=== PATIENT | female | born 1935 | race African-American/Black ===

== ENCOUNTER 2018-01-10 10:55 | Outpatient (CLI) | payer MEDICARE ==
[~2018-01-10] VITALS: Ht 162.6 cm; Wt 81.8 kg
--- NOTE | ~2018-01-10 | HEMODYNAMI ---
PATIENT:GAEL LOWERY MEDICAL RECORD: [id number] : 39 LOCATION:[facility] ADMISSION DATE: 01/10/18 Generatedon:01/10/201814:20 Patient name: GAEL LOWERY Patient #: [id number] : 1935 Date of study: 01/10/2018 Page: Of Hemodynamic Procedure Report Patient Data Patient Demographics Procedure consent was obtained First Name: GAEL Gender: Female Last Name: BEVERLEY : 1935 Patient #: [id number] Age: 82 year(s) Race: Black SSN: [id number] Additional ID: [id number] Contact details [address]: [address] [place] [address] State: [place] City: [place] Zip code: [address] Admission Admission Data Admission Date: 01/10/2018 Admission Time: 10:55 Procedure Procedure Types Cath Procedure Diagnostic Procedure LHC LHC w/Coronaries Aortic Root Angiography Sedation Charges Moderate Sedation up to 15 minutes Procedure Description Procedure Date Procedure Date: 01/10/2018 Procedure Start Time: 13:56 Procedure End Time: 14:19 Procedure Staff Name Function Esvin Emery MD Performing Physician Maribeth Schmitz RT Scrub Kathleen Greer RT Monitor Song Acosta RN Nurse Procedure Data Cath Procedure Fluoroscopy Diagnostic fluoroscopy Total fluoroscopy Time: 9 time: 9 min min Diagnostic fluoroscopy Total fluoroscopy dose: dose: 1153 mGy 1153 mGy Contrast Material Contrast Material Type Amount (ml) Isovue 300 150 Entry Location Entry Primary Successful Side Size Upsize Upsize Entry Closure Gil ccessful Closure Location (Fr) 1 (Fr) 2 (Fr) Remarks Device Remarks Radial Right 6 Fr Mechanical artery Short Compression Estimated blood loss: 10 ml Diagnostic catheters Device Type Used For End Catheter Placement DIAGNOSTIC [place] 110cm 5 Procedure Fr catheter ([id number]) DIAGNOSTIC AR MOD 5Fr Procedure Catheter ([id number]) DIAGNOSTIC AR 2 MOD 5 Fr Procedure catheter ([id number]) DIAGNOSTIC Pigtail 5Fr Procedure catheter ([id number]) Procedure Complications No complications Procedure Medications Medication Administration Route Dosage Oxygen etCO2 Nasal cannula 2 l/min Heparin Flush Bag added to field 2 bags (1000units/500ml NS) 0.9% NaCl I.V. 100 ml/hr Radial Cocktail added to field 1 syringe (Verapomil 2mg/Nitro 400mcg/Heparin 1500units) Fentanyl I.V. 50 mcg Versed I.V. 1 mg Fentanyl I.V. 50 mcg Versed I.V. 1 mg Radial Cocktail I.A. 1 syringe (Verapomil 2mg/Nitro 400mcg/Heparin 1500units) Zofran I.V. 4 mg Hemodynamics Rest Heart Rate: 16 (bpm) Pressure Samples Time Site Value (mmHg) Purpose Heart Use Rate(bpm) 14:01 LV 143/-6,8 Snapshot 99 14:02 AO 105/64(82) Pullback 73 14:02 LV 111/6,3 Pullback 73 14:13 AO 140/35(91) Snapshot 90 Gradients Valve Time Site 1 Site 2 Mean SEP/DFP Peak To Heart Use (mmHg) (sec/min) Peak Rate (mmHg) (bpm) Aortic 14:02 LV AO 6 73 111/6,3 105/64(82) Calculations Valve P-P Mean Valve Index Valve Source Name Gradient Area Flow (cm2) Aortic 6 6 Snapshots Pre Cath Intra NCS Post Cath Vital Signs Time Heart Resp SPO2 etCO2 NIBP (mmHg) Rhythm Pain Sedation Rate (ipm) (%) (mmHg) Status Level (bpm) 13:45:54 71 17 100 0 177/86(141) NSR 0 (11) 10(A) , No pain 13:50:16 74 16 100 0 174/85(129) NSR 0 (11) 10(A) , No pain 13:54:34 72 19 100 0 155/87(127) NSR 0 (11) 9(A) , No pain 13:58:44 76 17 100 0 103/63(77) NSR 0 (11) 9(A) , No pain 14:02:48 77 16 93 0 113/70(105) NSR 0 (11) 9(A) , No pain 14:06:56 79 17 95 0 124/71(106) NSR 0 (11) 9(A) , No pain 14:11:07 83 17 98 0 130/70(105) NSR 0 (11) 9(A) , No pain 14:15:20 88 15 98 0 133/74(101) NSR 0 (11) 9(A) , No pain 14:17:45 81 13 99 0 130/73(104) NSR 0 (11) 9(A) , No pain Medications Time Medication Route Dose Verified Delivered Reason Notes Effectiveness by by 13:45:43 Oxygen etCO2 2 l/min Esvin Zuleta Per Nasal [facility] Alcides Acosta RN physician cannula 13:45:54 Heparin Flush added 2 bags Esvin Zuleta used for Bag to [facility] Alcides Acosta RN procedure (1000units/500ml field SOLIS NS) 13:46:08 0.9% NaCl I.V. 100 Esvin Zuleta Per ml/hr [facility] Alcides Acosta RN physician 13:46:18 Radial Cocktail added 1 Esvin Zuleta used for (Verapomil to syringe [facility] Alcides Acosta RN procedure 2mg/Nitro field SOLIS 400mcg/Heparin 1500units) 13:50:14 Zofran I.V. 4 mg Esvin Zuleta for nausea [facility] Alcides Acosta RN, MD 13:52:10 Fentanyl I.V. 50 mcg Esvin Zuleta for sedation [facility] Alcides Acosta RN, MD 13:52:16 Versed I.V. 1 mg Esvin Zuleta for sedation [facility] Alcides Acosta RN, MD 13:57:40 Radial Cocktail I.A. 1 Esvin Mcallister for (Verapomil syringe [place] [facility] vasodilation 2mg/Emelyn SOLIS MD 400mcg/Heparin 1500units) 14:02:41 Fentanyl I.V. 50 mcg Esvin Zuleta for sedation [facility] Alcides Acosta RN, MD 14:02:46 Versed I.V. 1 mg Esvin Zuleta for sedation [facility] Alcides Acosta RN, MD Procedure Log Time Note 13:20:22 Maribeth Schmitz RT(R) sent for patient. Start room use. 13:31:35 Informed consent obtained and on chart 13:31:41 Diagnostic Cath Status : Elective 13:32:23 Time tracking: Regular hours (M-F 7:00 - 5:00) 13:32:28 Plan of Care:Hemodynamics will remain stable., Cardiac rhythm will remain stable., Comfort level will be maintained., Respiratory function will remain adequate., Patient/ family verbilizes understanding of procedure., Procedure tolerated without complication., Recovers from procedure without complications.. 13:38:59 Patient received from Pre/Post Procedure Room to CCL 2 Alert and oriented. Tansferred to table in Supine position. 13:39:00 Warm blankets applied, and lashanda hugger turned on for patient comfort. 13:39:00 Correct patient and procedure confirmed by team. 13:39:01 ECG and BP/O2 sat monitors applied to patient. 13:44:41 Baseline sample Acquired. 13:44:41 Vital chart was started 13:45:43 Oxygen 2 l/min etCO2 Nasal cannula was administered by Song Acosta RN; Per physician; 13:45:54 Heparin Flush Bag (1000units/500ml NS) 2 bags added to field was administered by Song Acosta RN; used for procedure; 13:46:08 0.9% NaCl 100 ml/hr I.V. was administered by Song Acosta RN; Per physician; 13:46:18 Radial Cocktail (Verapomil 2mg/Nitro 400mcg/Heparin 1500units) 1 syringe added to field was administered by Song Acosta RN; used for procedure; 13:46:59 Baseline sample Acquired. 13:47:00 Baseline sample Acquired. 13:47:05 Baseline sample Acquired. 13:47:07 Baseline sample Acquired. 13:47:11 Full Disclosure recording started 13:47:33 H&P Date Dictated: 01/09/2018 Within 30 days and on chart.. 13:47:37 Pre-procedure instructions explained to patient. 13:47:40 Family in waiting room. 13:47:42 Patient NPO since Midnight. 13:47:51 Is the patient allergic to Iodine/contrast media? No. 13:47:52 Was the patient premedicated? Yes 13:47:55 Is patient on blood thinner?No 13:47:57 Patient diabetic? No. 13:48:04 Previous problem with sedation/anesthesia? Yes Nausea 13:48:07 Snore? Yes 13:48:08 Sleep apnea? No 13:48:18 Patient pain scale 0/10 ?. 13:48:28 IV patent on arrival in left forearm with 0.9% NaCl at [facility]. 13:48:34 Lab results completed and on chart. 13:48:38 Right Radial & Right Groin area was prepped with chlora-prep and draped in sterile fashion 13:48:42 Alarms reviewed by R. N. 13:48:43 Sharps counted by scrub and verified by R.N. 13:48:46 Physician arrived 13:48:47 --------ALL STOP TIME OUT------ 13:48:48 Final Timeout: patient, procedure, and site verified with staff and physician. All members of the team are in agreement. 13:48:50 Right Radial & Right Groin site verified by team. 13:48:54 Physical assessment completed. ASA score P 2 - A patient with mild systemic disease as per Esvin Emery MD. 13:48:59 Sedation plan: IV Moderate Sedation Medication:Versed, Fentanyl 13:49:04 Use device set Femoral Dx 13:49:06 Bag Decanter (2002S) opened to sterile field. 13:49:07 Medline Cath Pack ([id number]) opened to sterile field. 13:49:08 ACIST Syringe (27236) opened to sterile field. 13:49:08 DIAGNOSTIC WIRE .035 260cm J wire (006230) opened to sterile field. 13:49:09 ACIST Hand Control (23182) opened to sterile field. 13:49:10 ACIST Manifold (99724) opened to sterile field. 13:49:11 DIAGNOSTIC Multipack 5Fr catheter set (OC4099) opened to sterile field. 13:49:12 Tegaderm 4 x 4 (1626W) opened to sterile field. 13:49:13 PERCUTANEOUS ENTRY 19GA needle opened to sterile field. 13:49:14 MICROPUNCTURE 4FR Keynoir (P53168) opened to sterile field. 13:49:24 SHEATH 6Fr Prelude Radial ([id number]) opened to sterile field. 13:50:14 Zofran 4 mg I.V. was administered by Song Acosta RN; for nausea; 13:52:10 Fentanyl 50 mcg I.V. was administered by Song Acosta RN; for sedation; 13:52:16 Versed 1 mg I.V. was administered by Song Acosta RN; for sedation; 13:52:18 Baseline sample Acquired. 13:56:04 Procedure started. 13:56:17 Local anesthetic to right radial artery with Lidocaine 2% by Esvin Emery MD.INITIAL ACCESS ONLY 13:56:28 A 6 Fr Short sheath was inserted into the Right Radial artery 13:57:12 Zero performed for pressure channel P1 13:57:40 Radial Cocktail (Verapomil 2mg/Nitro 400mcg/Heparin 1500units) 1 syringe I.A. was administered by Esvin Emery MD; for vasodilation; 13:57:43 A DIAGNOSTIC [place] 110cm 5 Fr catheter (949190) was advanced over the wire and used for Procedure. 13:59:06 GLIDE WIRE ANGLE 260cm (TQ6334) opened to sterile field. 14:02:21 EF : 55 % 14:02:30 LCA angiography performed. 14:02:41 Fentanyl 50 mcg I.V. was administered by Song Acosta RN; for sedation; 14:02:46 Versed 1 mg I.V. was administered by Song Acosta RN; for sedation; 14:04:50 Catheter removed. 14:09:36 A DIAGNOSTIC AR MOD 5Fr Catheter (406354Y) was advanced over the wire and used for Procedure.unable to cannulate rt cor 14:09:45 Catheter removed. 14:12:14 A DIAGNOSTIC AR 2 MOD 5 Fr catheter (966607S) was advanced over the wire and used for Procedure. 14:12:18 Catheter removed. 14:12:39 A DIAGNOSTIC Pigtail 5Fr catheter ([id number]) was advanced over the wire and used for Procedure. 14:12:49 Aortic Root visualized 14:14:45 Catheter removed. 14:14:59 TR BAND Standard ([id number]) opened to sterile field. 14:15:15 Sheath removed intact; hemostasis achieved with Mechanical Compression to the Right Radial artery. 14:15:18 Procedure ended.(Physican Out) 14:15:42 Fluoroscopy time 09.00 minutes. 14:15:48 Fluoroscopy dose: 1153 mGy 14:15:48 Flurop Dose total: 1153 14:15:53 Contrast amount:Isovue 300 150ml. 14:16:18 Sharps counted by scrub and verified by R.N. 14:16:22 TR band inflated with 13cc of air. 14:16:23 Insertion/operative site no bleeding no hematoma. 14:16:29 Post Procedure Pulses reassessed and unchanged 14:16:40 Post-procedure physical assessment completed. ASA score P 3 - A patient with severe systemic disease as per Esvin Emery MD. 14:16:45 Post procedure rhythm: unchanged. 14:17:04 Estimated blood loss: 10 ml 14:17:06 Post procedure instruction explained to patient.Patient verbalizes understanding. 14:17:25 Procedure type changed to Cath procedure, Diagnostic procedure, LHC, LHC w/Coronaries, Aortic Root Angiography, Sedation Charges, Moderate Sedation up to 15 minutes 14:18:28 Procedure and supply charges have been captured, reviewed, submitted and are correct. 14:19:05 Procedure Complication : No complications 14:19:08 Vital chart was stopped 14:19:10 See physician's report for complete and final results. 14:19:13 Report given to Pre/Post Procedure Room. 14:19:15 Patient transfered to Pre/Post Procedure Room with Stretcher. 14:19:17 Procedure ended. 14:19:17 Full Disclosure recording stopped 14:19:26 End room use (Document Last) 14:19:26 End room use (Document Last) Device Usage Item Name Manufacture Quantity Catalog Number Hospital Part Current M inimal Lot# / Charge Number Stock Stock Serial# Code Bag Decanter Microtek 1 2001S [id number] 11205 073602 5 () Medical Inc. Medline Cath Cardinal 1 [id number] 423880 71908 912946 5 Pack Health ([id number]) ACIST Syringe Acist 1 67628 237705 105032 969912 2 0 (85590) Medical [employer] Inc DIAGNOSTIC WIRE [facility] [place] 1 121644 982363 085211 666007 3 0 .035 260cm J wire (027853) ACIST Hand Acist 1 14769 743776 045482 702151 5 Control (93949) Medical Systems Inc ACIST Manifold Acist 1 56019 069092 487872 227809 5 (24272) Medical Systems Inc DIAGNOSTIC Cardinal 1 LH6301 995332 17074 491293 3 0 Multipack 5Fr Health catheter set (IQ1175) Tegaderm 4 x 4 3M 1 1626W 490957 681939 195644 5 (1626W) PERCUTANEOUS Keynoir Medical 1 N91164 656016 274754 5 ENTRY 19GA needle MICROPUNCTURE Cook Medical 1 Z80787 467338 754535 273097 5 4FR Cook (W47849) SHEATH 6Fr Merit 1 [id number] 335111 328190 367918 5 Prelude Radial Medical ([id number]) DIAGNOSTIC Terumo 1 40-4620 011587 025225 491821 5 [place] 110cm 5 Fr catheter (917852) GLIDE WIRE Terumo 1 YW5655 602978 998808 789667 5 ANGLE 260cm (BJ2246) DIAGNOSTIC AR Cardinal 1 [id number] 516168 781183 626408 1 5 MOD 5Fr Health Catheter (103406B) DIAGNOSTIC AR 2 Cardinal 1 147984Y 104260 883036 446687 2 0 MOD 5 Fr Health catheter (859992Z) DIAGNOSTIC Cardinal 1 [id number] 865787 966574 739914 5 Pigtail 5Fr Health catheter (541329I) TR BAND Terumo 1 [id number] 730236 338516 972491 4 0 Standard ([id number]) Signature Audit [place] Stage Time Signature Unsigned Intra-Procedure 01/10/2018 Kathleen Greer 2:20:02 PM RT(R) Signatures Monitor : Kathleen Greer Signature : RT Date : Time : [facility] [address] [place] [address]
--- NOTE | ~2018-01-10 | OP ---
PATIENT NAME: GAEL LOWERY MEDICAL RECORD: [id number] :39 LOCATION:D.CAT ADMISSION DATE: SURGEON: WON LEAHY MD DATE OF OPERATION: 01/10/2018 PROCEDURE: Left heart catheterization, selective coronary angiography, right radial approach. CATHETERS: [place] sheath. AR1 and 2 as well as a pigtail. The procedure was well tolerated. The patient returned to the soriano, sheath removed, and TR band was placed. FINDINGS: Left ventriculography in 30-degree VASQUEZ view: Normal wall motion, normal systolic function. AORTIC ROOT INJECTION: Aortic root injection was performed. This showed a probable flush occlusion of the right coronary artery at the aorta with no nub. CORONARY ANATOMY: LEFT MAIN: Left main is free of disease. LAD: Has a proximal stenosis about 80% distal takeoff of the LAD from the left main. CIRCUMFLEX: Again, a proximal stenosis of 80%. RIGHT CORONARY ARTERY: Totally occluded, fills via left to right collaterals. IMPRESSION: Three-vessel coronary artery disease. We will consult CT surgery for coronary artery bypass grafting. TRANSINT:[id number] Voice Confirmation ID: [id number] DOCUMENT ID: [id number] WON LEAHY MD at 0826 CC: [id number] DICTATION DATE: 01/10/18 1423 ESL TEACHER: 01/10/18 1514 DEP CLI 01/10/18 [facility] [address] [place] [address]
--- NOTE | ~2018-01-10 | HP ---
PATIENT: GAEL LOWERY MEDICAL RECORD: [id number] ACCOUNT: [id number] LOCATION:[facility] : 39 ADMISSION DATE: 01/10/18 HISTORY AND PHYSICAL EXAMINATION HISTORY OF PRESENT ILLNESS: An 82-year-old female with a history of hypertension, hyperlipidemia, referred with anginal symptomatology. She was seen in the office, complained of shortness of breath progressive, few episodes of rest symptomology. Known history of peripheral vascular disease. Being brought to slab stripper for diagnostic angiography. MEDICATIONS: Include Aleve 220 one q.12, amlodipine 5 every day, simvastatin 20 daily, aspirin 81 mg daily, lisinopril 20 every day. SOCIAL HISTORY: Nonsmoker, nondrinker. She is able to take care of her ADLs. PHYSICAL EXAMINATION: GENERAL: Pleasant female, appears younger than stated age. HEENT: Normocephalic, atraumatic. NECK: No bruits. HEART: Regular. LUNGS: Child clear. ABDOMEN: Soft, nontender. EXTREMITIES: Pulses 2+ with no edema. IMPRESSION: Progressive angina. PLAN: Plan for angiography, intervention based on above. TRANSINT:[id number] Voice Confirmation ID: [id number] DOCUMENT ID: [id number] WON LEAHY MD at 0826 CC: [id number] DICTATION DATE: 01/10/18 1350 PLAYROOM ATTENDANT: 01/10/18 1414 DEP CLI 01/10/18 [place] [id number] [place] [id number]
[2018-01-10 11:26] VITALS: BP 201/96; Ht 162.6 cm; Wt 81.8 kg
[2018-01-10] MEDS ORDERED: ZOCOR20 MG PO (11:35)
[2018-01-10] MEDS ORDERED: OMEPRAZOLE40 MG PO (11:35)
[2018-01-10] MEDS ORDERED: PRINIVIL20 MG PO (11:35)
[2018-01-10] MEDS ORDERED: NORVASC5 MG PO (11:35)
[2018-01-10] MEDS ORDERED: BAYER CHEWABLE81 MG PO (11:36)
[2018-01-10 11:47] LABS: BASOPHILS 0.2 % (0-2); EOSINOPHILS 2.6 % (0-7); HEMATOCRIT 37.8 % (36.0-48.0); HEMOGLOBIN 12.8 g/dL (12-16); IMMATURE GRANULOCYTES 0.2 % (0-5); LYMPHOCYTES 39.3 % (15-50); MCH 27.9 pg (26.0-34.0); MCHC 33.9 g/dL (31.0-37.0); MCV 82.4 fL (80.0-100.0); MEAN PLATELET VOLUME 10.7 fL (7.4-10.4); MONOCYTES 6.1 % (2-11); NEUTROPHILS 51.6 % (40-80); PLATELET COUNT 217 10x3/uL (130-400); RBC 4.59 10x6/uL (4.00-5.40); RDW 14.2 % (11.5-14.5); WBC 4.9 10x3/uL (4.8-10.8)
[2018-01-10 11:58] LABS: ANION GAP 10.6 mmol/L (8-16); CALCIUM 9.5 mg/dL (8.5-10.1); CARBON DIOXIDE 30.3 mmol/L (21.0-32.0); CREATININE - SERUM 0.8 mg/dL (0.6-1.3); POTASSIUM - SERUM 3.9 mmol/L (3.5-5.1)
[2018-02-08] MEDS ORDERED: ALEVE220 MG PO (09:55)
== END 2018-01-10 18:30 | disposition home or self-care (01) ==
LOC: D.CATH 10:55
PROVIDERS: Internal Medicine Interventional Cardiology
DX: I25.10 Atherosclerotic heart disease of native coronary artery without angina pectoris (principal); I10 Essential (primary) hypertension; E78.5 Hyperlipidemia, unspecified; I73.9 Peripheral vascular disease, unspecified; Z79.1 Long term (current) use of non-steroidal anti-inflammatories (NSAID); Z79.82 Long term (current) use of aspirin; Z79.899 Other long term (current) drug therapy; Z01.812 Encounter for preprocedural laboratory examination

== ENCOUNTER 2018-02-08 10:00 | Inpatient (IN) | payer MEDICARE ==
[~2018-02-08] VITALS: Ht 162.6 cm; Wt 86.8 kg
--- NOTE | ~2018-02-08 | OP ---
PATIENT NAME: GAEL LOWERY MEDICAL RECORD: [id number] :39 LOCATION:D.CVI D.CV02 ADMISSION DATE:02/11/18 SURGEON: OCTAVIO KO MD DATE OF OPERATION: 02/11/2018 SURGEON: Octavio Ko MD CONTINUING EDUCATION INSTRUCTOR: Amina Robertson MD, and SAADIA Duenas OPERATION PERFORMED: Coronary artery bypass graft times 3 (left internal mammary to LAD, reverse saphenous vein graft from aorta to obtuse marginal and aorta to posterior descending artery). PREOPERATIVE DIAGNOSIS: Coronary artery disease with left main equivalent and occluded right coronary artery. POSTOPERATIVE DIAGNOSIS: Coronary artery disease with left main equivalent and occluded right coronary artery. ANESTHESIA: General endotracheal anesthesia. ESTIMATED BLOOD LOSS: Total cardiopulmonary bypass with Cell Saver retransfusion, 2 packed red blood cells. COMPLICATIONS: None. SPECIMENS: None. CONDITION: Stable. DISPOSITION: CV ICU. OPERATIVE FINDINGS: 1. Transesophageal echocardiography with normal appearing heart, no valvular incompetence. 2. Good quality greater saphenous vein slightly smaller portion at the knee was not used. 3. Good quality internal mammary artery. The LAD as known from the previous arteriogram had diffuse disease including disease at the distal bifurcation site, but after opening the vessel 1.5 mm probe passed distally to the apex and there was good Doppler flow after anastomosis. 4. Obtuse marginal 2.0 mm vessel with severe disease. 5. Posterior ascending artery 2.0 mm vessel. OPERATIVE INDICATION: Unstable angina symptoms 80% left main equivalent occluded right coronary artery. OPERATIVE SUMMARY IN DETAIL: The patient was brought to the operating suite. General anesthesia was obtained. The patient was prepped and draped. The vein was harvested with bridging incisions. Side branches were clipped. Vessels removed and cannulated. Side branches were tied. The leg was then irrigated and closed in 2 layers. Median sternotomy incision was made. Subcutaneous tissue divided with electrocautery. The sternum was divided. Left hemisternum was elevated. Left OPERATIVE REPORT [id number] GAEL LOWERY internal mammary artery vein was taken as a pedicle graft. Sternal retractor was placed. Pericardium was opened. Heparin was given. The patient was cannulated. Internal mammary was clipped distally and made ready for anastomosis. The patient was placed on cardiopulmonary bypass. Site for distal anastomosis were selected. The patient was cooled. Crossclamp was placed. Cardioplegia needle was inserted in the anterior ascending aorta and the cardioplegia was given antegrade including down the completed vein grafts at 15-minute intervals. The distal anastomosis was performed in standard technique and proximal anastomosis in single cross-clamp technique. The aortic root de-aired, flow restored. After deairing the root and deairing the vein grafts, proximal and distal anastomotic sites inspected for bleeding. The patient resumed rhythm after single defibrillation, fully rewarmed with cardiopulmonary bypass and was stable. The patient was decannulated. The cannula sites were oversewn. Protamine was given. Thorough irrigation was undertaken. Graft lay appropriately. The drains were placed in the mediastinum and left pleural cavity. Ventricular pacing wires were placed. Pericardial fat was loosely approximated the midline. The left chest was evacuated and irrigated. The internal mammary harvest site was made hemostatic. Sternum was closed with wires including a Robicsek weave on the right side. The patient was stable. Chest closed. Fascia was closed. Subcutaneous tissue was closed. Skin was closed. Dermabond was placed. The needle and sponge counts were reported as correct and the patient was taken to the ICU in stable condition. TRANSINT:[id number] Voice Confirmation ID: [id number] DOCUMENT ID: [id number] OCTAVIO KO MD at 1505 CC: [id number] DICTATION DATE: 02/11/181952 PRODUCTION LINE WORKER: 02/12/18 0001 DIS IN 02/17/18 [place] [id number] [place] [address]
--- NOTE | ~2018-02-08 | HP ---
PATIENT: GAEL LOWERY MEDICAL RECORD: [id number] ACCOUNT: [id number] LOCATION:[facility] : 39 ADMISSION DATE: 02/11/18 HISTORY AND PHYSICAL EXAMINATION GAEL Smith (82yo, F) ID# [id number]. Date/Time01/29/2018 02:33POEDB48 1937Servic Dept.[facility]PP[facility] ClinicProviderJANICE KO MDInsuranceMed Primary: [place] Insurance # : [id number] Referring Provider Name : WON QUEZADA Employer Name : UNKNOWN Prescription: ORX - Member is eligible. Chief Complaint Coronary artery disease Patient's Care Team Referring Provider (): WON QUEZADA: [address] [place] [address], , Employee Benefits Administrator: WON LEAHY MD: [address] [place] [id number], , Patient's Pharmacies [facility] [id number] ([facility]): [id number] [facility] [id number], , Vitals BP:160/90 sitting L arm 01/29/2018 02:40 pm 162/90 sitting R arm 01/29/2018 02:41 pmBP Cuff Size:adult 01/29/2018 02:40 pm adult 01/29/2018 02:41 pmHR:78,reg 01/29/2018 02:42 pmHt:5 ft 4 in 01/29/2018 02:39 pmWt:176 lbs 01/29/2018 02:39 pmNotes:had pain and numbness to RLE and was sent to [facility] did stress test then cath, now she's here. Legs are on the back burner. bilat LE doppler bp L 198, R 204 able to auscultate dp and pt pulses bilat w doppler 01/29/2018 02:58 pmBMI:30.2 01/29/2018 02:39 pmAllergies Reviewed Allergies PRAVASTATIN: Myalgias (muscle pain)Medications Reviewed Medications Aleve 220 mg capsule Take 1 mg every 12 hours by oral route.01/21/18 enteredErika WatkinsamLODIPine 5 mg cizyll14/30/18 filledPRESCRIPTION SOLUTIONSAspir-81 81 DAILY01/21/18 enteredErika Watkinslisinopril 20 mg tablet TK 1 T PO D011/29/17 filledsurescriptsomeprazole 40 mg capsule,delayed oczsazt78/18/18 filledPRESCRIPTION SOLUTIONSsimvastatin 20 mg putsxq66/01/18 filledsurescriptsProblems Reviewed Problems Coronary arteriosclerosis - Onset: 01/29/2018 Swelling of bilateral lower limbs Hypertensive disorder Hyperlipidemia Dyspnea on exertion Family History Reviewed Family History Father- AccidentMother- Malignant neoplastic diseaseBrother- Myocardial infarction - Malignant lymphoma (clinical) - Intracranial tumorSocial History Reviewed Social History Cardiology HISTORY AND PHYSICAL [id number] GAEL LOWERY Family history of heart disease?: Y Smoking Status: Never smoker High Cholesterol: Y High blood pressure: Y Overweight: Y Obese: Y Diabetes: N Alcohol intake: None Diet: Regular Occupation: retired Surgical History Reviewed Surgical History LUMPECTOMY R BREAST INTERNIST MEDICAL DOCTOR MD History (not configured) Past Medical History Reviewed Past Medical History Angina: Y Chest Pain: Y Circulation Problems: Y Coronary Artery Disease: Y Dizzy Spells: Y Heart Disease: Y Heartburn: Y Hyperlipidemia: Y Hypertension: Y Pain in legs when walking: Y Peripheral Vascular Disease (PVD): Y Shortness of Breath: Y Swelling of Ankles, Feet or Hands: Y Documents for Discussion N/A Screening None recorded. HPI Coronary Artery Disease F/U Reported by patient. Severity: no chest discomfort with daily activities; has not needed to use Nitroglycerin Associated Symptoms: no chest pain; no neck pain; no left arm pain; no sweating; no nausea; no stress; dyspnea with exertion 82-year-old female with exertional dyspnea, denies chest pain, palpitations, syncope or near syncope, or history of heart disease Cardiac catheterization revealed 80% proximal LAD and circumflex with an occluded right coronary artery, well collateralized. She had some rest pain in the right leg but no tissue loss and specifically denies claudication symptoms ROS Additionally reports: as reviewed in the chart with the patient and her daughter ROS as noted in the HPI Physical Exam Patient is an 82-year-old female. Constitutional: General Appearance well nourished and developed and healthy-appearing. Level of Distress NAD. Ambulation ambulating normally. HISTORY AND PHYSICAL [id number] BROWN,GAEL Ears, Nose, Throat: Ears grossly normal hearing. Nose no external nose lesion. Lips, Teeth, and Gums normal dentition. Oropharynx: moist mucous membranes. Cardiovascular: Apical Impulse not displaced. Heart Auscultation RRR and no murmurs. Arterial Pulses 2+ bilateral. Edema no edema or varicosities. Lungs: Repiratory Effort no dyspnea. Percussion no dullness or flatness. Auscultation no wheezing, rhonchi, or rales / crackles and breathing sounds normal and good air movement. Abdomen: Inspection and Palpation soft, non-distended, and no masses. Liver no hepatomegaly. Spleen no splenomegaly. Musculoskeletal System: Gait And Stance normal gait and stance. Digits and Na ils normal nails and no cyanosis. Joints, Bones, and Muscles normal strength and movement of all extremities. Neurologic: Cranial Nerves grossly intact. Sensation grossly intact. Lymph Nodes: Lymph Nodes no cervical LAD or supraclavicular LAD. Eyes: Lids and Conjunctivae non-injected. EOM EOMI. Sclera non-icteric. Neck: Neck supple, trachea midline, and no masses. Thyroid no enlargement. Skin: Inspection and Palpation no rash, lesions, ulcers, or jaundice. Assessment / Plan 1. Coronary arteriosclerosis I25.10: Atherosclerotic heart disease of [place] coronary artery without angina pectoris Patient Instructions discussed warning signs Discussion Notes we discussed the rationaleof coronary artery bypass graft, the alternatives, benefits, recovery, and risks including but not limited to bleeding, transfusion, infection, reoperation, arrhythmia, heart attack, stroke, organ failure, and . [place] from February 04, plan PAT February 08 and bypass February 11 JANICE KO MD at 1006 CC: [id number] DICTATION DATE: 01/29/18 1400 OFFSET DUPLICATING MACHINE OPERATOR: DM 02/08/18 1123 [address] [place] [id number] [place] [address]
--- NOTE | ~2018-02-08 | TEE ---
PATIENT:GAEL LOWERY MEDICAL RECORD: [id number] LOCATION:[place] [address] AGE OF PATIENT: 82 ADMISSION DATE: 02/11/18 SEX: F REFERRING PHYSICIAN: INTERPRETING PHYSICIAN: KARINA DUMONT MD TRANSESOPHAGEAL ECHOCARDIOGRAM Date: 02/11/18 LILA CHARGE Y INDICATIONS: CABG PREMEDICATIONS: PATIENT'S RESPONSE PROCEDURE DOPPLER MEASUREMENTS: LVIT LA PA RA LVOT RVOT Asc. Ao AV Gradient Peak AV Mean AV Area MV Gradient Peak MV Mean MV Area INTERPRETATION: LVd: 3.7 cm LVs: 1.6 cm Doppler: 2-D: COLOR FLOW DOPPLER NORMAL SALINE STUDY: MISCELLANOUS: DIAGNOSIS: PLAN: Adoption Coordinator:3 Dr. Palmer Linen Controller: Maria Guadalupe CASE COMMENTS: DATE OF SERVICE: 02/11/2018 PROCEDURE: Transesophageal echo evaluation of valvular structures during bypass surgery. FINDINGS: 1. Left ventricular chamber size is within normal limits. Left ventricular systolic function is normal. Overall ejection fraction is estimated at 60%. 2. Left atrium, right atrium, and right ventricle chamber sizes are within TRANSESOPHAGEAL ECHOCARDIOGRAM REPORT [id number] GAEL LOWERY normal limit. 3. Valvular structures have normal structure and motion. 4. Doppler interrogation reveals no significant valvular insufficiency or stenosis. 5. No evidence of pericardial effusion or left ventricular thrombus. TRANSINT:[id number] Voice Confirmation ID: [id number] DOCUMENT ID: [id number] at 1741 CC: [id number] DICTATION DATE: 02/12/18 1218 AIRPORT TRAFFIC CONTROLLER: 02/12/18 1520 ADM [address] [place] [id number] [place] [address]
[~2018-02-08 10:00] MED LIST: ALEVE220 MG PO; BAYER CHEWABLE81 MG PO; NORVASC5 MG PO; OMEPRAZOLE40 MG PO; PRINIVIL20 MG PO; ZOCOR20 MG PO
[2018-02-08 11:55] LABS: BASOPHILS 0.2 % (0-2); EOSINOPHILS 3.3 % (0-7); HEMATOCRIT 38.2 % (36.0-48.0); HEMOGLOBIN 12.7 g/dL (12-16); IMMATURE GRANULOCYTES 0.2 % (0-5); LYMPHOCYTES 35.8 % (15-50); MCH 27.8 pg (26.0-34.0); MCHC 33.2 g/dL (31.0-37.0); MCV 83.6 fL (80.0-100.0); MEAN PLATELET VOLUME 10.8 fL (7.4-10.4); MONOCYTES 5.2 % (2-11); NEUTROPHILS 55.3 % (40-80); PLATELET COUNT 187 10x3/uL (130-400); RBC 4.57 10x6/uL (4.00-5.40); RDW 14.2 % (11.5-14.5); WBC 5.4 10x3/uL (4.8-10.8)
[2018-02-08 11:57] LABS: APPEARANCE CLEAR (CLEAR); BILIRUBIN NEGATIVE (NEGATIVE); COLOR YELLOW (YELLOW); GLUCOSE NEGATIVE (NEGATIVE); KETONE NEGATIVE (NEGATIVE); NITRITE NEGATIVE (NEGATIVE); PROTEIN NEGATIVE (NEGATIVE); SPECIFIC GRAVITY 1.005 (1.005-1.020)
[2018-02-08 12:11] LABS: APTT 35.1 SECONDS (22.8-39.4); INR 1.04 (0.85-1.17); PROTIME 13.2 SECONDS (11.6-15.0)
[2018-02-08 12:25] LABS: ALBUMIN 3.6 g/dL (3.4-5.0); ANION GAP 11.6 mmol/L (8-16); BILIRUBIN - TOTAL 0.34 mg/dL (0.2-1.3); CALCIUM 9.6 mg/dL (8.5-10.1); CARBON DIOXIDE 29.7 mmol/L (21.0-32.0); CREATININE - SERUM 0.8 mg/dL (0.6-1.3); PHOSPHOROUS 3.9 mg/dL (2.5-4.9); POTASSIUM - SERUM 4.3 mmol/L (3.5-5.1); PROTEIN - SERUM 7.4 g/dL (6.4-8.2); T4 THYROXIN - FREE 0.99 ng/dL (0.76-1.46); THYROID STIMULATING HORMONE 1.17 uIU/mL (0.36-3.74); URIC ACID 4.4 mg/dL (2.6-7.2)
[2018-02-11] VITALS (20 sets, daily range): BP systolic 97–178; BP diastolic 48–95; BMI 30.1; BMI 31.6
[2018-02-12] VITALS (51 sets, daily range): BP systolic 101–150; BP diastolic 56–85; Ht 162.6 cm; Wt 86.8 kg
[2018-02-12 06:13] LABS: HEMATOCRIT 39.2 % (36.0-48.0); HEMOGLOBIN 13.5 g/dL (12-16); MCH 28.2 pg (26.0-34.0); MCHC 34.4 g/dL (31.0-37.0); RBC 4.78 10x6/uL (4.00-5.40); RDW 14.2 % (11.5-14.5); WBC 15.1 10x3/uL (4.8-10.8)
[2018-02-12 07:01] LABS: ALBUMIN 3.1 g/dL (3.4-5.0); ALKALINE PHOSPHATASE 52 U/L (46-116); ALT (SGPT) 15 U/L (10-68); BILIRUBIN - TOTAL 0.64 mg/dL (0.2-1.3); CALC OSMOLALITY 283 mosm/kg (275-300); CALCIUM 7.9 mg/dL (8.5-10.1); CARBON DIOXIDE 25.2 mmol/L (21.0-32.0); CHLORIDE - SERUM 106 mmol/L (98-107); CREATININE - SERUM 0.7 mg/dL (0.6-1.3); POTASSIUM - SERUM 4.3 mmol/L (3.5-5.1); PROTEIN - SERUM 5.6 g/dL (6.4-8.2); SODIUM 141 mmol/L (136-145); UREA NITROGEN 10 mg/dL (7-18); eGFR NON AFRICAN AMERICAN 85 mL/min (90-120)
[2018-02-12 07:04] LABS: GLUCOSE 177 mg/dL (74-106)
[2018-02-13] VITALS (25 sets, daily range): BP systolic 101–136; BP diastolic 51–76
[2018-02-13 06:22] LABS: HEMATOCRIT 36.6 % (36.0-48.0); HEMOGLOBIN 12.1 g/dL (12-16); MCH 27.8 pg (26.0-34.0); MCHC 33.1 g/dL (31.0-37.0); MEAN PLATELET VOLUME 11.3 fL (7.4-10.4); RBC 4.35 10x6/uL (4.00-5.40); RDW 14.6 % (11.5-14.5); WBC 16.2 10x3/uL (4.8-10.8)
[2018-02-13 06:32] LABS: ALBUMIN 2.7 g/dL (3.4-5.0); ANION GAP 8.6 mmol/L (8-16); BILIRUBIN - TOTAL 0.73 mg/dL (0.2-1.3); CALCIUM 8.3 mg/dL (8.5-10.1); CARBON DIOXIDE 29.6 mmol/L (21.0-32.0); CREATININE - SERUM 0.9 mg/dL (0.6-1.3); POTASSIUM - SERUM 4.2 mmol/L (3.5-5.1); PROTEIN - SERUM 5.8 g/dL (6.4-8.2)
[2018-02-13 06:34] LABS: MCV 84.1 fL (80.0-100.0)
[2018-02-14] VITALS (24 sets, daily range): BP systolic 105–138; BP diastolic 58–80
[2018-02-14 06:35] LABS: HEMATOCRIT 34.9 % (36.0-48.0); HEMOGLOBIN 11.5 g/dL (12-16); MCH 27.9 pg (26.0-34.0); MCV 84.7 fL (80.0-100.0); MEAN PLATELET VOLUME 11.1 fL (7.4-10.4); RBC 4.12 10x6/uL (4.00-5.40); RDW 14.5 % (11.5-14.5); WBC 13.3 10x3/uL (4.8-10.8)
[2018-02-14 06:46] LABS: ALBUMIN 2.4 g/dL (3.4-5.0); ANION GAP 5.8 mmol/L (8-16); BILIRUBIN - TOTAL 0.54 mg/dL (0.2-1.3); CALCIUM 8.7 mg/dL (8.5-10.1); CARBON DIOXIDE 30.9 mmol/L (21.0-32.0); CREATININE - SERUM 0.8 mg/dL (0.6-1.3); POTASSIUM - SERUM 4.7 mmol/L (3.5-5.1); PROTEIN - SERUM 5.7 g/dL (6.4-8.2)
[2018-02-15] VITALS (23 sets, daily range): BP systolic 90–139; BP diastolic 51–78
[2018-02-15 06:52] LABS: HEMATOCRIT 35.2 % (36.0-48.0); HEMOGLOBIN 11.7 g/dL (12-16); MCH 27.7 pg (26.0-34.0); MCHC 33.2 g/dL (31.0-37.0); MCV 83.4 fL (80.0-100.0); MEAN PLATELET VOLUME 10.7 fL (7.4-10.4); RBC 4.22 10x6/uL (4.00-5.40); RDW 14.4 % (11.5-14.5); WBC 10.1 10x3/uL (4.8-10.8)
[2018-02-15 07:10] LABS: ALBUMIN 2.4 g/dL (3.4-5.0); ANION GAP 9.1 mmol/L (8-16); BILIRUBIN - TOTAL 0.62 mg/dL (0.2-1.3); CALCIUM 9.1 mg/dL (8.5-10.1); CARBON DIOXIDE 29.6 mmol/L (21.0-32.0); POTASSIUM - SERUM 4.7 mmol/L (3.5-5.1); PROTEIN - SERUM 5.9 g/dL (6.4-8.2)
[2018-02-15 07:11] LABS: CREATININE - SERUM 1.1 mg/dL (0.6-1.3)
[2018-02-16] VITALS (23 sets, daily range): BP systolic 101–146; BP diastolic 53–83
[2018-02-16 06:26] LABS: HEMATOCRIT 34.5 % (36.0-48.0); HEMOGLOBIN 11.4 g/dL (12-16); MCH 27.9 pg (26.0-34.0); MCV 84.6 fL (80.0-100.0); MEAN PLATELET VOLUME 10.3 fL (7.4-10.4); RBC 4.08 10x6/uL (4.00-5.40); RDW 14.6 % (11.5-14.5); WBC 8.5 10x3/uL (4.8-10.8)
[2018-02-16 07:15] LABS: ALBUMIN 2.4 g/dL (3.4-5.0); ANION GAP 12.9 mmol/L (8-16); BILIRUBIN - TOTAL 0.47 mg/dL (0.2-1.3); CARBON DIOXIDE 27.5 mmol/L (21.0-32.0); CREATININE - SERUM 0.9 mg/dL (0.6-1.3); POTASSIUM - SERUM 4.4 mmol/L (3.5-5.1)
[2018-02-17] VITALS (15 sets, daily range): BP systolic 105–130; BP diastolic 53–70
[2018-02-17 10:57] LABS: HEMATOCRIT 36.3 % (36.0-48.0); HEMOGLOBIN 11.7 g/dL (12-16); MCHC 32.2 g/dL (31.0-37.0); MEAN PLATELET VOLUME 10.1 fL (7.4-10.4); PLATELET COUNT 193 10x3/uL (130-400); RBC 4.18 10x6/uL (4.00-5.40); RDW 14.8 % (11.5-14.5); WBC 8.7 10x3/uL (4.8-10.8)
[2018-02-17 11:00] LABS: MCV 86.8 fL (80.0-100.0)
[2018-02-17 11:18] LABS: EOSINOPHILS 3 % (0-7); LYMPHOCYTES 20 % (15-50); MONOCYTES 11 % (2-11); NEUTROPHILS 65 % (40-80); PLATELET ESTIMATE NORMAL
[2018-02-17 11:20] LABS: ALBUMIN 2.5 g/dL (3.4-5.0); ANION GAP 11.9 mmol/L (8-16); BILIRUBIN - TOTAL 0.48 mg/dL (0.2-1.3); CALCIUM 8.8 mg/dL (8.5-10.1); CARBON DIOXIDE 28.7 mmol/L (21.0-32.0); POTASSIUM - SERUM 4.6 mmol/L (3.5-5.1); PROTEIN - SERUM 6.3 g/dL (6.4-8.2)
[2018-02-17] MEDS ORDERED: LOPRESSOR25 MG PO (11:36)
[2018-02-17] MEDS ORDERED: CORDARONE200 MG PO (11:36)
[2018-02-17] MEDS ORDERED: ULTRAM50 MG PO (11:40)
== END 2018-02-17 14:00 | disposition home or self-care (01) | DRG 236 ==
LOC: D.SDCHOLD 11:00 → D.CVICU 02-11 08:35 → D.SDCHOLD 02-11 11:00 → D.CVICU 02-11 16:25
PROVIDERS: Internal Medicine Cardiovascular Disease; Thoracic Surgery (Cardiothoracic Vascular Surgery)
PROC: 021109W Bypass Coronary Artery, Two Arteries from Aorta with Autologous Venous Tissue, Open Approach (ICD-10-PCS; 2018-02-11)
PROC: 06BP0ZZ Excision of Right Saphenous Vein, Open Approach (ICD-10-PCS; 2018-02-11)
PROC: B24BZZ4 Ultrasonography of Heart with Aorta, Transesophageal (ICD-10-PCS; 2018-02-11)
PROC: 5A1221Z Performance of Cardiac Output, Continuous (ICD-10-PCS; 2018-02-11)
PROC: 02100Z9 Bypass Coronary Artery, One Artery from Left Internal Mammary, Open Approach (ICD-10-PCS; principal; 2018-02-11 14:15)
DX: I25.119 Atherosclerotic heart disease of native coronary artery with unspecified angina pectoris (principal); I10 Essential (primary) hypertension; E78.5 Hyperlipidemia, unspecified; R06.00 Dyspnea, unspecified; M79.89 Other specified soft tissue disorders; R00.1 Bradycardia, unspecified

== ENCOUNTER → 2018-02-25 11:10 | Outpatient (CLI) | payer MEDICARE ==
[2018-02-12 09:55] VITALS: BMI 31.9
[~2018-02-25 11:10] MED LIST changes: +CORDARONE200 MG PO; +LOPRESSOR25 MG PO; +ULTRAM50 MG PO
[2018-02-25 12:00] LABS: BASOPHILS 0.2 % (0-2); EOSINOPHILS 0.3 % (0-7); HEMATOCRIT 37.3 % (36.0-48.0); HEMOGLOBIN 12.4 g/dL (12-16); IMMATURE GRANULOCYTES 0.3 % (0-5); LYMPHOCYTES 5.6 % (15-50); MCH 27.9 pg (26.0-34.0); MCHC 33.2 g/dL (31.0-37.0); MEAN PLATELET VOLUME 9.5 fL (7.4-10.4); NEUTROPHILS 88.6 % (40-80); RBC 4.44 10x6/uL (4.00-5.40); RDW 13.9 % (11.5-14.5); WBC 17.2 10x3/uL (4.8-10.8)
[2018-02-25 12:01] LABS: PLATELET COUNT 376 10x3/uL (130-400)
[2018-02-25 12:40] LABS: ALBUMIN 2.9 g/dL (3.4-5.0); ANION GAP 13.9 mmol/L (8-16); BILIRUBIN - TOTAL 0.73 mg/dL (0.2-1.3); CALCIUM 8.8 mg/dL (8.5-10.1); CARBON DIOXIDE 25.6 mmol/L (21.0-32.0); CREATININE - SERUM 0.9 mg/dL (0.6-1.3); POTASSIUM - SERUM 4.5 mmol/L (3.5-5.1)
== END | disposition home or self-care (01) ==
LOC: D.RAD 11:10
PROVIDERS: Thoracic Surgery (Cardiothoracic Vascular Surgery)
DX: I25.10 Atherosclerotic heart disease of native coronary artery without angina pectoris (principal); R06.02 Shortness of breath; J90 Pleural effusion, not elsewhere classified

== ENCOUNTER → 2018-03-13 09:31 | Outpatient (CLI) | payer MEDICARE ==
[2018-02-12 09:55] VITALS: BMI 31.9
[2018-03-13 10:33] LABS: ALBUMIN 3.5 g/dL (3.4-5.0); ANION GAP 10.9 mmol/L (8-16); BILIRUBIN - TOTAL 0.38 mg/dL (0.2-1.3); CALCIUM 8.9 mg/dL (8.5-10.1); CARBON DIOXIDE 29.4 mmol/L (21.0-32.0); CREATININE - SERUM 0.9 mg/dL (0.6-1.3); POTASSIUM - SERUM 4.3 mmol/L (3.5-5.1)
[2018-03-13 11:44] LABS: HEMATOCRIT 37.3 % (36.0-48.0); HEMOGLOBIN 12.3 g/dL (12-16); MCH 27.8 pg (26.0-34.0); MCV 84.2 fL (80.0-100.0); MEAN PLATELET VOLUME 9.9 fL (7.4-10.4); RBC 4.43 10x6/uL (4.00-5.40); RDW 14.2 % (11.5-14.5); WBC 7.8 10x3/uL (4.8-10.8)
== END | disposition home or self-care (01) ==
LOC: D.RAD 09:31 → D.LAB 11:30
PROVIDERS: Thoracic Surgery (Cardiothoracic Vascular Surgery)
DX: J91.8 Pleural effusion in other conditions classified elsewhere (principal); D64.9 Anemia, unspecified

== ENCOUNTER → 2018-04-17 09:17 | Outpatient (CLI) | payer MEDICARE ==
[2018-02-12 09:55] VITALS: BMI 31.9
[2018-04-17 12:09] LABS: BASOPHILS 0.2 % (0-2); EOSINOPHILS 3.3 % (0-7); HEMATOCRIT 37.3 % (36.0-48.0); HEMOGLOBIN 12.3 g/dL (12-16); IMMATURE GRANULOCYTES 0.2 % (0-5); LYMPHOCYTES 29.5 % (15-50); MCH 27.5 pg (26.0-34.0); MCV 83.3 fL (80.0-100.0); MEAN PLATELET VOLUME 11.2 fL (7.4-10.4); MONOCYTES 7.3 % (2-11); NEUTROPHILS 59.5 % (40-80); RBC 4.48 10x6/uL (4.00-5.40); RDW 14.7 % (11.5-14.5); WBC 5.1 10x3/uL (4.8-10.8)
[2018-04-17 12:12] LABS: PLATELET COUNT 211 10x3/uL (130-400)
== END | disposition home or self-care (01) ==
LOC: D.RAD 09:17
PROVIDERS: Thoracic Surgery (Cardiothoracic Vascular Surgery)
DX: D64.9 Anemia, unspecified (principal); I25.10 Atherosclerotic heart disease of native coronary artery without angina pectoris; J90 Pleural effusion, not elsewhere classified